=== PATIENT | male | born 1955 | race Two or more races ===

== ENCOUNTER 2020-12-01 16:15 | Emergency (ER) | payer SELFPAY ==
[~2020-12-01] VITALS: Ht 165.1 cm; Wt 79.4 kg
--- NOTE | 2020-12-01 16:30 | NUR ---
JOSE MIN 76 "Was found in front of [facility] he states he left." Patient alert and oriented, verbally responsive. Appears to be drunk. +etoh smell. No distress noted. Asking for food.
[2020-12-01 17:42] LABS: BASOPHILS % (AUTO) 0.6 % (0.0-2.0); EOSINOPHILS % (AUTO) 1.1 % (0.0-6.0); HEMATOCRIT 31 % (39-51); LYMPHOCYTES # (AUTO) 2.3 /CMM (0.8-4.8); LYMPHOCYTES % (AUTO) 32.9 % (20.0-44.0); MEAN CORPUSCULAR HGB CONC 32 g/dl (31.0-36.0); MEAN CORPUSCULAR VOLUME 89 fL (80-96); MONOCYTES # (AUTO) 0.5 /CMM (0.1-1.30); MONOCYTES % (AUTO) 6.6 % (2.0-12.0); NEUTROPHILS # (AUTO) 4.2 /CMM (1.8-8.9); NEUTROPHILS % (AUTO) 58.8 % (43.0-81.0); PLATELET COUNT (AUTO) 356 /CMM (150-450); RED BLOOD CELL COUNT(AUTO) 3.44 MIL/uL (4.5-6.0); WHITE BLOOD COUNT (AUTO) 7.1 K/uL (4.3-11.0)
[2020-12-01 18:01] LABS: ACETAMINOPHEN < 2 ug/ml (10-30); ALANINE AMINOTRANSFERASE 22 U/L (12-78); ALBUMIN 3.4 g/dL (3.4-5.0); ALCOHOL, BLOOD 235 mg/dL (0-0); ALKALINE PHOSPHATASE 119 U/L (46-116); ASPARTATE AMINOTRANSFERASE 15 U/L (15-37); BILIRUBIN,DIRECT 0.1 mg/dL (0.0-0.2); BILIRUBIN,TOTAL 0.3 mg/dL (0.2-1.0); CALCIUM, SERUM 8.6 mg/dL (8.5-10.1); CARBON DIOXIDE 22 mmol/L (21-32); CHLORIDE 102 mmol/L (98-107); CREATININE 1.1 mg/dL (0.6-1.3); POTASSIUM 3.9 mmol/L (3.5-5.1); SODIUM SERUM 137 mmol/L (136-145); TOTAL PROTEIN, SERUM 7.5 g/dL (6.4-8.2); UREA NITROGEN, BLOOD 9 mg/dL (7-18)
[2020-12-01 18:02] LABS: GLUCOSE 356 mg/dL (74-106)
--- NOTE | 2020-12-01 18:37 | NUR ---
PT ATE DINNER FELL ASLEEP
--- NOTE | 2020-12-02 00:13 | NUR ---
PT AAOX4. AWAKE, ASKING FOR WATER AND SNACKS.
--- NOTE | 2020-12-02 02:03 | NUR ---
PT AWAKE, AAOX4. SCREAMING GIVE ME WATER. PT WAS ASKED WHY HE WAS BROUGHT TO THE E.D. PT STATED BECAUSE HE DRANK. PT DENIES BEING FROM A [facility]. VSS. PENDING DISCHARGE.
[2020-12-02 07:04] VITALS: BP 124/79
== END 2020-12-02 02:10 | disposition home or self-care (01) ==
LOC: ER 16:20
DX: F10.129 Alcohol abuse with intoxication, unspecified (principal); R53.1 Weakness; I10 Essential (primary) hypertension; E11.9 Type 2 diabetes mellitus without complications; Y90.7 Blood alcohol level of 200-239 mg/100 ml; Z86.73 Personal history of transient ischemic attack (TIA), and cerebral infarction without residual deficits
CPT/HCPCS: 36415; 80048-TC; 80076-TC; 82962-TC; 85025-TC; G0480